=== PATIENT | female | born 2000 | race Two or more races ===

== ENCOUNTER 2020-10-24 16:27 | Emergency (ER) | payer SELFPAY ==
[~2020-10-24] VITALS: Ht 188 cm; Wt 116.5 kg
[2020-10-24 16:34] VITALS: BP 135/83
--- NOTE | 2020-10-24 17:46 | NUR ---
ICE CUTTER: PT TO ROOM FROM LOBBY
[2020-10-24] MEDS ORDERED: CEFTRIAXONE 1,000 MG ONE (17:57)
[2020-10-24] MEDS ORDERED: CEFTRIAXONE 1,000 MG IM ONE (18:00)
--- NOTE | 2020-10-24 18:08 | NUR ---
MEDICATED PER EMAR
--- NOTE | 2020-10-24 18:26 | NUR ---
NO S/S OF ABX RXN NOTED. DC EDUCATION PROVIDED, PT DEMONSTRATES UNDERSTANDING.PT AMBULATED STEADILY TO DC WITH RN AND FRIEND.
== END 2020-10-24 18:28 | disposition home or self-care (01) ==
LOC: ED 18:00
DX: Z20.2 Contact with and (suspected) exposure to infections with a predominantly sexual mode of transmission (principal)
CPT/HCPCS: 87491; 87591; 96372; 99283; J0696